=== PATIENT | female | born 1975 | race Caucasian/White ===

== ENCOUNTER 2022-08-14 18:20 | Emergency (ER) | payer OTHER, SELFPAY ==
[2022-08-14] VITALS (8 sets, daily range): BP systolic 106–133; BP diastolic 62–96; PULSE 61–74; RESP 13–19; TEMP 36.3; O2SAT 100
--- NOTE | ~2022-08-14 | CT_ITS ---
EXAMINATION: CTA chest PE protocol DATE: 08/14/2022 22:22 INDICATION: chest pain, elevated d dimer TECHNIQUE: Computed tomography angiography (CTA) of the chest was performed with 100 mL Omnipaque-350 intravenous contrast timed to evaluate the pulmonary arteries. Coronal maximum intensity projection 3D-reconstructions were created by the technologist. The dose-length product (DLP) was 479.35 mGy-cm. Automated exposure control and iterative reconstruction technique were employed. COMPARISON: X-ray chest, same date. FINDINGS: Lung parenchyma and airways: Minimal dependent atelectasis. Calcified right upper lobe granuloma. Pleura: Unremarkable. Thoracic inlet, axillae and chest wall: Unremarkable. Thoracic aorta: Normal. Mediastinum: Calcified right hilar lymph node. Heart and pericardium: Normal. Coronary artery calcifications: Absent. Upper abdomen: No significant finding. Bones: No acute osseous finding. Pulmonary arteries: Study quality: Adequate. No pulmonary emboli detected. IMPRESSION: No CT evidence of acute pulmonary embolus. No acute process detected in the chest. Reviewed, dictated and finalized at location K. IMPRESSION: No CT evidence of acute pulmonary embolus. No acute process detected in the deya st.
--- NOTE | ~2022-08-14 | XR_ITS ---
EXAMINATION: XR chest 2V Exam Date/Time: 08/14/2022 18:40 CDT HISTORY: CHEST PAIN Comparison: None available. RESULT: Lines, tubes, and devices: None. Lungs and pleura: Clear. Posterior costophrenic angles are excluded from the [id number]. Cardiomediastinal silhouette: Normal. Other: No acute osseous or upper abdominal finding. IMPRESSION: No acute cardiopulmonary process. The inferior portions of the posterior costophrenic angles were exc luded from the [id number] which slightly limits the study. Reviewed, dictated and finalized at location K. IMPRESSION: No acute cardiopulmonary process. The inferior portions of the posterior costop hrenic angles were excluded from the [id number] which slightly limits the st udy.
--- NOTE | 2022-08-14 18:22 | ECG_ITS ---
Measurements Intervals [place] Rate: 71 P: -8 [place]: 131 QRS: 31 QRSD: 93 T: 37 QT: 360 QTc: 394 Interpretive Statements SINUS RHYTHM BASELINE ARTIFACT- I, II, III, AVR NORMAL ECG NO PREVIOUS ECG AVAILABLE FOR COMPARISON Electronically Signed On 08-14-2022 21:30:22 CDT by Prashanth Deluca D.O.
[2022-08-14 18:47] LABS: Basophils Percent Auto 0.4 % (0.2-1.2); Eosinophils Absolute Auto 0.1 K/mm3 (0-0.3); Eosinophils Percent Auto 1.4 % (0-4.4); Hematocrit 37.3 % (37.0-47.0); Immature Granulocyte Absolute 0.01 K/mm3 (0.00-0.031); Immature Granulocyte Percent A 0.2 % (0-0.5); Lymphocytes Absolute Auto 1.46 K/mm3 (0.9-3.2); Lymphocytes Percent Auto 29.9 % (18.3-44.2); Mean Corpuscular HGB Conc 32.2 g/dl (32-36); Mean Corpuscular Hemoglobin 25.9 pg (26-34); Mean Corpuscular Volume 80.4 fl (80-100); Mean Platelet Volume 10.3 fl (7.4-10.4); Monocytes Absolute Auto 0.3 K/mm3 (0.1-0.6); Monocytes Percent Auto 6.3 % (2.6-8.5); Neutrophils Percent Auto 61.8 % (45.5-73.1); Platelet Count Result 235 k/mm3 (150-375); Red Blood Count 4.64 M/mm3 (4.2-5.4); White Blood Count 4.9 K/mm3 (4.5-10.0)
[2022-08-14 18:56] LABS: Partial Thromboplastin Time 25.3 SECONDS (22.3-36.8); Prothrombin Time 13.2 Seconds (11.1-14.7)
[2022-08-14 18:57] LABS: Alanine Aminotransferase 25 U/L (6-35); Albumin Level 4.2 g/dL (3.5-5.1); Alkaline Phosphatase 68 U/L (38-126); Anion Gap 10 mmol/L (8-16); Aspartate Amino Transferase 51 U/L (14-36); Bilirubin,Total 0.3 mg/dL (0.2-1.3); Blood Urea Nitrogen 14 mg/dL (7-17); Carbon Dioxide 22 mmol/L (22-30); Chloride 103 mmol/L (98-107); Estimated CRCL calculation 86 ml/min; Estimated Glomerular Filt Rate > 60; Glucose 103 mg/dL (65-110); Lipase 238 U/L (23-300); Potassium 3.6 mmol/L (3.4-5.0); Sodium 135 mmol/L (137-145)
[2022-08-14 19:08] LABS: Troponin I < 0.012 ng/mL (0.000-0.034)
--- NOTE | 2022-08-14 21:06 | PC.NURSE ---
Pt verbalized they took 324mg of aspirin at 1730 prior to ED arrival.
--- NOTE | 2022-08-14 21:06 | ED.CHESTPAIN ---
HPI - Chest Pain General Chief Complaint: Chest Pain Stated Complaint: CHEST PAIN Time Seen by Provider: 08/14/22 20:47 Source: patient and RN notes reviewed Mode of arrival: ambulatory Limitations: no limitations History of Present Illness HPI narrative: This is a 46 year old female with history of anxiety who presents for evaluation of midsternal chest pain. Patient states around 5 pm she was making dinner when she developed sudden onset midsternal chest pain. THis pain radiated to her neck and back and it lasted 3 minutes. She reports having some dizziness. She denies shortness of breath, vomiting or diaphoresis. She denies any exacerbating factors or aleving factors. She denies cough, fever chills. She denies heart disease or family history of heart disease. She denies having chest pain now. Related Data Home Medications Medication Instructions Recorded Confirmed escitalopram oxalate 10 mg tablet mg 08/14/22 Allergies Allergy/AdvReac Type Severity Reaction Status Date / Time No Known Allergies Allergy Verified 08/14/22 20:54 Review of Systems Review of Systems: All systems reviewed & are unremarkable except as noted in HPI and below Constitutional: Constitutional: Denies chills, Denies fatigue and Denies fever(s) Cardiovascular: Cardiovascular: Reports chest pain and Reports radiating jaw, neck or arm pain Respiratory: Respiratory: Denies chest congestion, Denies cough and Denies dyspnea Gastrointestinal: Gastrointestinal: Denies abdominal pain, Denies nausea and Denies vomiting Psychiatric: Psychiatric: Reports anxiety PMFSH Past Medical History Medical History (Updated 08/15/22 @ 00:00 by Piero Lubin) Anxiety Sleep disorder Surgical History Surgical History Delivery by section History of appendectomy Social History Social History (Updated 02/21/22 @ 08:44 by Sharon Tolbert MA) Smoking status: Never smoker Alcohol intake: current Alcohol use details: socially Substance use: never Substance use type: does not use Additional occupation/education comments: [employer] Gender identity (if verbalized by the patient): Female Sexual Orientation (if Verbalized by the Patient): Straight or Heterosexual Exam Const: General: alert Nutritional Appearance: well nourished Orientation/consciousness: patient oriented x3 Limitations: no limitations Eyes: EOM: EOMs intact bilaterally Neck: Neck: normal visual inspection Chest: Chest palpation & inspection: normal inspection of the chest Resp: Effort & Inspection: normal respiratory effort Auscultation: clear to auscultation bilaterally Cardio: Rate: regular rate Rhythm: regular rhythm Heart sounds: no murmurs GI: GI Palp: Yes Soft to palpation, No Tenderness to palpation present (GI) and No Guarding due to palpation present (GI) Auscultation: normal bowel sounds Skin: General skin exam: normal color Rashes: no rashes Wounds: no wounds Neuro: General: patient oriented x3, moves all extremities and CN's II-XI intact bilaterally Cranial nerves: Yes Nystagmus not present Extrem: General: normal to inspection Psych: Mental Status: mental status grossly normal Affect: normal affect Attitude: cooperative Course Reevaluation(s) Reevaluation #1: Patient does not have any chest pain. I Discussed labs and CT are unremarkable. I explained she is low risk using heart score so she will need to follow up with primary care physician to determine if further testing is needed. Date: 08/14/22 Time: 23:17 Vital Signs Vital signs: Vital Signs Temperature 97.4 F L 08/14/22 18:32 Pulse Rate 69 08/14/22 18:32 Respiratory Rate 18 08/14/22 18:32 Blood Pressure 119/70 08/14/22 18:32 Pulse Oximetry 100 08/14/22 18:32 Oxygen Delivery Room Air 08/14/22 18:32 Temperature 97.4 F L 08/14/22 18:32 Pulse Rate 73 08/14/22 23:32 Respirato
--- NOTE | 2022-08-14 21:07 | PC.NURSE ---
EDP aware of pt taking 324mg of aspirin at home
[2022-08-14 21:55] LABS: D Dimer 0.73 ug/mL (<0.48); Troponin I < 0.012 ng/mL (0.000-0.034)
== END 2022-08-14 23:24 | disposition home or self-care (01) ==
PROVIDERS: Emergency Medicine; Emergency Provider General Practice; PCP Family Medicine
DX: R07.89 Other chest pain (principal); F41.9 Anxiety disorder, unspecified
CPT/HCPCS: 36415; 71046; 71275; 80053; 81025; 83690; 84484; 85025; 85380; 85610; 85730; 93005; 99284; Q9967

== ENCOUNTER 2023-04-09 15:19 | Emergency (ER) | payer OTHER, SELFPAY ==
[2023-04-09] VITALS (15 sets, daily range): BP systolic 114–127; BP diastolic 66–82; PULSE 56–79; RESP 10–20; TEMP 36.4–36.6; O2SAT 97–100
--- NOTE | ~2023-04-09 | US_ITS ---
EXAMINATION: US abdomen limited DATE: 04/09/2023 20:34 INDICATION: Right upper quadrant abdominal pain, nausea and vomiting. Abnormal liver function tests. TECHNIQUE: Multiple grayscale and Doppler ultrasound images of the abdomen were obtained. COMPARISON: None FINDINGS: The pancreatic head and body are normal in appearance. The pancreatic tail is not visualized. Liver has normal echogenicity and contour, with a smooth surface. No liver lesion identified. No intrahepat ic biliary duct dilation suspected. Portal venous flow was seen in the hepatopetal, normal direction and has normal Doppler waveform. Multiple echogenic and shadowing gallstones in the otherwise normal- appearing gallbladder. No evident gallbladder wall thickening. Sonographic Aviles sign was reported a s negative by the compliance paralegal.The common bile duct measures 4 mm diameter which is normal. Visualized portion of the inferior vena cava is normal. IMPRESSION: 1. Cholelithiasis. Reviewed, dictated and finalized at location A. IMPRESSION: 1. Cholelithiasis.
[2023-04-09 15:44] LABS: Basophils Percent Auto 0.5 % (0.2-1.2); Hematocrit 36.7 % (37.0-47.0); Hemoglobin 11.8 g/dL (12.0-15.0); Immature Granulocyte Absolute 0.01 K/mm3 (0.00-0.031); Immature Granulocyte Percent A 0.3 % (0-0.5); Lymphocytes Absolute Auto 0.81 K/mm3 (0.9-3.2); Lymphocytes Percent Auto 20.3 % (18.3-44.2); Mean Corpuscular HGB Conc 32.2 g/dl (32-36); Mean Corpuscular Hemoglobin 25.7 pg (26-34); Mean Corpuscular Volume 79.8 fl (80-100); Mean Platelet Volume 10.3 fl (7.4-10.4); Monocytes Absolute Auto 0.2 K/mm3 (0.1-0.6); Neutrophils Absolute Auto 2.9 K/mm3 (1.3-6.7); Neutrophils Percent Auto 71.9 % (45.5-73.1); Platelet Count Result 219 k/mm3 (150-375); Red Cell Distribution Width 15.2 % (11.5-14.5)
[2023-04-09 15:59] LABS: Alkaline Phosphatase 119 U/L (38-126); Anion Gap 5 mmol/L (8-16); Bilirubin,Total 1.6 mg/dL (0.2-1.3); Blood Urea Nitrogen 15 mg/dL (7-17); Calcium 8.6 mg/dL (8.4-10.2); Carbon Dioxide 30 mmol/L (22-30); Chloride 103 mmol/L (98-107); Estimated Glomerular Filt Rate > 60; Glucose 102 mg/dL (65-110); Lipase 308 U/L (23-300); Sodium 138 mmol/L (137-145)
[2023-04-09 16:25] LABS: Alanine Aminotransferase 1070 U/L (6-35)
[2023-04-09 16:48] LABS: Aspartate Amino Transferase 1714 U/L (14-36)
--- NOTE | 2023-04-09 19:29 | ED.ABDPAIN ---
HPI - Abdominal Pain General Chief Complaint: Abdominal Pain <ELVA Mcfarland Last Filed: 04/15/23 08:54> Stated Complaint: Abdomen pain <ELVA Mcfarland Last Filed: 04/15/23 08:54> Time Seen by Provider: 04/09/23 19:29 <ELVA Mcfarland Last Filed: 04/15/23 08:54> Source: patient <ELVA Mcfarland Last Filed: 04/15/23 08:54> Mode of arrival: ambulatory <ELVA Mcfarland Filed: 04/15/23 08:54> Limitations: no limitations <ELVA Mcfarland Filed: 04/15/23 08:54> History of Present Illness HPI narrative: Patient is a 47 y/o female who presents to the ED with c/o RUQ abdominal pain. Patient reports she ate pizza for dinner last night and woke up around 1 AM this morning with pain in her epigastric region/lower chest, radiated to her right upper abdomen, under her right lower rib cage. Patient began vomiting, unable to keep anything down. She tried taking Tums and aspirin, but was unable to keep these down. Pain has been constant and persisted today, which prompted her presentation. Patient denies any fevers. She does also report having constipation for the last 2 days, which is not usual for her, denies diarrhea, rectal bleeding, shortness of breath. Denies urinary symptoms. <ELVA Mcfarland Last Filed: 04/15/23 08:54> Related Data Home Medications: Home Medications Medication Instructions Recorded Confirmed escitalopram oxalate 10 mg tablet mg 08/14/22 <ELVA Mcfarland Last Filed: 04/15/23 08:54> Allergies/Adverse Reactions: Allergies Allergy/AdvReac Type Severity Reaction Status Date / Time No Known Allergies Allergy Verified 08/14/22 20:54 <ELVA Mcfarland Last Filed: 04/15/23 08:54> Review of Systems Review of Systems: CONSTITUTIONAL: Denies fever, chills, or sweats. CARDIOVASCULAR: See HPI. RESPIRATORY: Denies dyspnea. GASTROINTESTINAL: See HPI. GENITOURINARY: Denies dysuria or hematuria. SKIN: Denies rash or itching. MUSCULOSKELETAL: Denies back pain, joint pain, or myalgia. <Tyesha Szymanski PA-C - Last Filed: 04/15/23 08:54> All systems reviewed & are unremarkable except as noted in HPI and below <Tyesha Szymanski PA-C - Last Filed: 04/15/23 08:54> [facility] Past Medical History Medical History: Medical History Anxiety Sleep disorder <Tyesha Szymanski PA-C - Last Filed: 04/15/23 08:54> Surgical History Surgical History: Surgical History Delivery by section History of appendectomy <Tyesha Szymanski PA-C - Last Filed: 04/15/23 08:54> Social History Social History: Social History Smoking status: Never smoker Alcohol intake: current Alcohol use details: socially Substance use: never Substance use type: does not use Living arrangements: with family Occupation/Education: occupation 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 HEAD: Normocephalic, atraumatic. NECK: Supple. No adenopathy, no masses. RESPIRATORY: Airway patent, respirations nonlabored. Clear to auscultation bilaterally, no rales, rhonchi, wheezing. CARDIOVASCULAR: Regular rate and rhythm without murmurs, rubs, or gallops. Radial pulses 2+ and equal bilaterally. ABDOMINAL: Soft, mild tenderness in epigastric region and under right lower rib cage, nondistended, no hepatosplenomegaly. Normoactive BS. MUSCULOSK
--- NOTE | 2023-04-09 19:49 | ECG_ITS ---
Measurements Intervals [place] Rate: 59 P: 40 ID: [id number] QRS: 54 QRSD: 98 T: 38 QT: 399 QTc: 397 Interpretive Statements SINUS BRADYCARDIA WITH SINUS ARRHYTHMIA BASELINE ARTIFACT- I, III, AVL BORDERLINE ECG COMPARED TO ECG 08/14/2022 18:25:09 SINUS BRADYCARDIA NOW PRESENT SINUS ARRHYTHMIA NOW PRESENT Electronically Signed On 04-10-2023 6:43:08 CDT by Prashanth Deluca D.O.
[2023-04-09] MEDS: SODIUM CHLORIDE 0.9% IV 1,000 ML 999 ML IV CONT (20:02)
[2023-04-09] MEDS: MORPHINE SULFATE (*CRX) 4 MG/ML INJ IV PUSH ×2 (20:02→23:34)
[2023-04-09] MEDS: ONDANSETRON INJ 4 MG/2 ML VIAL IV PUSH (20:02)
[2023-04-09 20:12] LABS: Appearance Urine Cloudy (Clear); Bacteria Urine None Seen /hpf; Bilirubin Urine 1+ (Negative); Blood Urine 3+ (Negative); Color Urine Dark Yellow (Yellow); Glucose Urine UA Negative (Negative); Ketones Urine Negative (Negative); Leukocyte Esterase Ur Trace LEU/UL (Negative); Nitrate Urine Negative (Negative); Non Pathogenic Casts 0-2; Protein Urine 1+ mg/dL (Negative); RBC Urine >100 /hpf (0-2); Specific Grav Ur 1.016 (1.001-1.035); Squamous Epithelial Cell Urine None seen /hpf (Few); WBC Urine 0-5 /hpf; pH Urine 5.5 (5.0-9.0)
[2023-04-09 20:13] LABS: Add Urine Microscopic? YES
[2023-04-09] MEDS: PANTOPRAZOLE SODIUM IV 40 MG VIAL IV PUSH (21:25)
[2023-04-09 22:46] LABS: SARS-CoV-2 RNA PCR Negative (Negative)
[2023-04-09 23:04] LABS: Hepatitis B Surface Antigen Negative (Negative)
[2023-04-09 23:09] LABS: HAV RESULT Negative (Negative); Hepatitis B Core IgM Result Negative (Negative)
[2023-04-09 23:21] LABS: Hepatitis C Virus Antibody Negative (Negative)
[2023-04-10] VITALS (7 sets, daily range): BP systolic 99–105; BP diastolic 56–74; PULSE 57–72; RESP 12–20; O2SAT 96–99
[2023-04-10 00:05] LABS: Troponin I < 0.012 ng/mL (0.000-0.034)
--- NOTE | 2023-04-10 00:25 | PC.NURSE ---
Spoke with Kim at [facility] transfer center with regard to patient transfer. Informed that they will call with bed availability updates at [facility].
[2023-04-10] MEDS: HYDROmorphone HCL INJ (*CRX) 1 MG/ML SYR IV PUSH (02:52)
[2023-04-10 06:10] LABS: Glucose Point of Care 126 mg/dl (65-105)
[2023-04-10] MEDS: ONDANSETRON INJ 4 MG/2 ML VIAL IV PUSH (06:12)
--- NOTE | 2023-04-10 07:22 | PC.NURSE ---
assumed care, got pt hospital bed, pt resting comfortably
== END 2023-04-10 11:30 | disposition short-term general hospital (02) ==
PROVIDERS: Emergency Medicine; Emergency Provider Physician Assistant; PCP Family Medicine
DX: K80.20 Calculus of gallbladder without cholecystitis without obstruction (principal); R74.01 Elevation of levels of liver transaminase levels; Z20.822 Contact with and (suspected) exposure to COVID-19; F41.9 Anxiety disorder, unspecified; G47.9 Sleep disorder, unspecified; R00.1 Bradycardia, unspecified
CPT/HCPCS: 36415; 76705; 80053; 80074; 81001; 81025; 82948; 83690; 84484; 85025; 87635; 93005; 96361; 96374; 96375; 96376; 99285; C9113; J1170; J2270; J2405; J7030; U0005

== ENCOUNTER → 2023-12-04 08:41 | Outpatient (CLI) | payer OTHER, SELFPAY ==
--- NOTE | ~2023-12-04 | MR_ITS ---
MRI of the brain Clinical History: Tremor Technique: Axial and sagittal T1-weighted images were acquired. These were followed by axial T2-weigh morena, diffusion weighted, gradient, and FLAIR images. Following intravenous administration of 19 cc Mu ltiHance gadolinium, T1-weighted fat-sat imaging was performed in the axial and coronal planes. Findings: There is no abnormal signal to brain parenchyma. No acute infarct, intracranial hemorrhage, or mass lesion. Ventricles and subarachnoid spaces are unremarkable. Orbits are unremarkable. Paranasal sinuses and m astoid air cells are clear. Major intracranial flow voids are intact. Sagittal midline structures are intact. No abnormal postcontrast enhancement identified. IMPRESSION: Unremarkable exam. Reviewed, dictated and finalized at location M. WAY SIGNALLING ENGINEER IMPRESSION: Unremarkable exam.
== END ==
PROVIDERS: PCP Family Medicine; Visit Provider Family Medicine
DX: R25.1 Tremor, unspecified (principal); G43.909 Migraine, unspecified, not intractable, without status migrainosus; G62.9 Polyneuropathy, unspecified
CPT/HCPCS: 70553; A9577